=== PATIENT | male | born 1955 | race Caucasian/White ===

== ENCOUNTER 2021-06-08 09:10 | Emergency (ER) | payer BC ==
[~2021-06-08] VITALS: Ht 177.8 cm; Wt 90.0 kg
[~2021-06-08 09:10] MED LIST: NAPROXEN 3375 MG/TAB PO; NORCO 325 MG-51 TAB PO; NORVASC 10MG10 MG PO
[2021-06-08 09:15] VITALS: TEMP 98
[2021-06-08] MEDS ORDERED: DIOVAN 80MG80 MG PO (09:20)
[2021-06-08 09:51] LABS: BASO % 0.6 % (0.0-2.0); EOS # 0.3 (0.0-0.7); EOS % 4.1 % (0-4.0); GRAN # 3.9 (1.4-6.5); GRAN % 54.1 % (42.2-75.2); HEMATOCRIT 47.8 % (42.0-52.0); HEMOGLOBIN 15.4 g/dl (13.5-18.0); LYMPH # 2.5 (1.2-3.4); MEAN CELL VOLUME 89 fl (80.0-100.0); MEAN CORPUSCULAR HEMOGLOBIN 29 pg (27.0-31.0); MEAN CORPUSCULAR HGB CONC 32 g/dl (33.0-37.0); MEAN PLATELET VOLUME 9.7 fl (7.4-10.4); MONO # 0.4 (0.1-0.6); MONO % 5.9 % (1.7-9.3); PLATELET COUNT 264 K/mm3 (130-400); RED BLOOD COUNT 5.37 M/mm3 (4.20-5.60); REDCELL DISTRIBUTION WIDTH-CV 13.1 % (11.5-14.5)
[2021-06-08 09:58] LABS: ALANINE AMINOTRANSFERASE 28 U/L (4-49); ALBUMIN 4.2 gm/dL (3.5-5.0); ALKALINE PHOSPHATASE 71 U/L (50-136); ANION GAP 6 mmol/L (7-16); AST,SGOT 27 U/L (15-37); BILIRUBIN,TOTAL 0.4 mg/dL (0.0-1.0); BLOOD UREA NITROGEN 21 mg/dL (9-20); CALCIUM 9.6 mg/dL (8.4-10.2); CARBON DIOXIDE 25 mmol/L (22-30); CHLORIDE 107 mmol/L (98-107); CREATININE, serum 1.33 (0.66-1.25); GLUCOSE 165 mg/dL (74-106); SODIUM 138 mmol/L (137-145)
[2021-06-08 10:10] LABS: TROPONIN-I < 0.012 ng/mL (0.000-0.035)
[2021-06-08 14:30] VITALS: BP 131/85; PULSE 77
== END 2021-06-08 14:30 | disposition short-term general hospital (02) ==
LOC: COL.ER 09:10
PROVIDERS: Personal Emergency Response Attendant
DX: R07.2 Precordial pain (principal); R79.89 Other specified abnormal findings of blood chemistry; I10 Essential (primary) hypertension; Z79.899 Other long term (current) drug therapy
CPT/HCPCS: J1644; J7030

== ENCOUNTER 2021-08-23 14:02 | Outpatient (RCR) | payer BC ==
[~2021-08-23 14:02] MED LIST changes: +DIOVAN 80MG80 MG PO
== END 2021-09-11 15:38 | disposition home or self-care (01) ==
LOC: COL.CR 14:02
DX: Z48.812 Encounter for surgical aftercare following surgery on the circulatory system (principal); Z95.5 Presence of coronary angioplasty implant and graft